=== PATIENT | female | born 1955 ===

== ENCOUNTER 2017-10-19 07:22 | Emergency (ER) | payer MEDICAID, OTHER ==
[~2017-10-19] VITALS: Ht 154.9 cm; Wt 52.2 kg
[2017-10-19 08:10] VITALS: BP 119/83
[2017-10-19 08:43] LABS: Basophils # (auto) 0 uL; Basophils % (auto) 0.7 % (0.0-2.0); Eosinophils # (auto) 0.1 uL; Hematocrit 44.1 % (36.0-46.0); Hemoglobin 14.8 g/dL (12.2-16.2); Lymphocytes # (auto) 1.7 uL; Lymphocytes % (auto) 24.3 % (10.0-50.0); Mean Corpuscular Hemoglobin 32.1 pg (28.0-32.0); Mean Corpuscular Hgb Conc. 33.5 g/dL (32.0-36.0); Mean Corpuscular Volume 95.8 fL (80.0-100.0); Monocytes # (auto) 0.5 uL; Monocytes % (auto) 6.6 % (0.0-12.0); Neutrophils # (auto) 4.7 uL; Neutrophils % (auto) 66.4 % (37.0-80.0); Platelet Count (auto) 361 10^3/uL (140-450); Red Cell Distribution Width 12.9 % (11.8-14.3); White Blood Cell 7.1 10^3/uL (4.4-10.8)
[2017-10-19 09:01] LABS: Albumin 3.6 g/dL (3.4-5.0); BUN/Creatinine Ratio 12.5; Magnesium 2.2 mg/dL (1.6-2.6); Potassium 4.4 mmol/L (3.5-5.1)
[2017-10-19 09:04] LABS: Bilirubin, Total 0.5 mg/dL (0.2-1.0); Total Protein 8.1 g/dL (6.4-8.2)
== END 2017-10-19 14:09 | disposition left against medical advice (07) ==
LOC: ER 07:22
DX: R07.9 Chest pain, unspecified (principal); R42 Dizziness and giddiness; E78.5 Hyperlipidemia, unspecified; I10 Essential (primary) hypertension; E07.9 Disorder of thyroid, unspecified; Z87.442 Personal history of urinary calculi; Z90.49 Acquired absence of other specified parts of digestive tract
CPT/HCPCS: 36415; 71020; 80053; 83735; 84443; 84484; 85025; 93005